=== PATIENT | female | born 1985 | race American Indian/Alaskan Native ===

== ENCOUNTER 2018-09-04 10:10 | Outpatient (CLI) | payer BC ==
--- NOTE | 2018-09-04 12:39 | Magnetic Resonance Report ---
MRI scan of brain: History: Amenorrhea. Technique: Multiplanar multisequence images were obtained without contrast injection. Findings: No evidence of restricted diffusion. Ventricles are normal in size and midline in location. No evidence of acute ischemia hemorrhage or mass. The sella turcica appears unremarkable. No extra-axial fluid collection. Normal sinuses and mastoid air cells. Impression: Essentially negative MRI scan of brain.
--- NOTE | 2018-09-06 19:05 | Magnetic Resonance Report ---
PROCEDURE: MR PELVIS WO CON HISTORY: AMENORRHEA FINDINGS: MRI of of the pelvis was performed using sagittal T2, sagittal T1 axial T1, axial fat satur ated T2, coronal T1 and coronal fat-saturated T2-weighted images. These images demonstrate that the uterus is normal in size 2.7 x 3.3 x 6.2 cm. The endometrial stripe is relatively thin, at 0.3 cm, but normal in appearance. The right ovary is seen on axial images 22-23 coronal image 17. It measures approximately 1.5 x 1.6 x 3.2 cm. It appears folliculopenic with only a few small 0.2-0.3 follicles present. On the left, there is a high T2 signal intensity structure in the left adnexal region. It is not enti rely clear if this is an ovarian cystic lesion or hydrosalpinx. It measures altogether approximately 4.9 x 5.1 x 4.9 cm. On coronal image 21 and sagittal image 8 these locules appear to connect and is t herefore thought likely to represent a dilated left fallopian tube with largest segment of the tube d ilated to up to 3 cm. Pelvic ultrasound may be helpful for further evaluation. The left ovary is best seen coronal image 22, 2. 3.0 x 2.3 cm and contains a follicle measuring 1.0 c m. The urinary bladder is unremarkable. The bony pelvis and hips appear within normal limits. 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
== END 2018-09-04 10:11 | disposition home or self-care (01) ==
LOC: MRI 10:10
PROVIDERS: ATTEND Obstetrics & Gynecology
DX: N83.02 Follicular cyst of left ovary (principal); R19.09 Other intra-abdominal and pelvic swelling, mass and lump
CPT/HCPCS: 70551; 72195